=== PATIENT | male | born 1970 | race Caucasian/White ===

== ENCOUNTER → 2019-03-29 | Outpatient (CLI) | payer BC ==
--- NOTE | 2019-03-29 10:51 | US ---
EXAMINATION TYPE: US prostate transrectal DATE OF EXAM: 03/29/2019 COMPARISON: NONE CLINICAL HISTORY: R39.12 abnormal urinary stream. Patient states frequent urination and slow urinary stream This examination was performed using the transrectal probe. EXAM MEASUREMENTS: Gland Size: 4.1 x 4.0 x 2.3 cm Volume: 19.4 ml Predicted PSA: 2.32 Actual PSA (if available): 0.4 on 12-29-2018 No prominent masses or lesions seen in peripheral zone. Central zone calcifications incidentally note d. IMPRESSION: The prostate gland is heterogenous with central zone calcifications although nonenlarged . No suspicious mass is seen. Predicted PSA = volume x 0.12 ng/ml Calculated Volume = 0.5236 x L x W x H
== END | disposition home or self-care (01) ==
LOC: RADUSWWP 08:49
PROVIDERS: ATTEND Internal Medicine
DX: N42.89 Other specified disorders of prostate (principal)
CPT/HCPCS: 76872

== ENCOUNTER → 2020-10-02 | Outpatient (CLI) | payer OTHER ==
[2020-10-02 16:29] LABS: Prostate Specific Antigen 0.4 ng/mL (0.0-3.5)
== END | disposition home or self-care (01) ==
LOC: LABWHC1 08:36
PROVIDERS: ATTEND Family Medicine
DX: R79.89 Other specified abnormal findings of blood chemistry (principal)
CPT/HCPCS: 36415; 82672; 84153; 84402; 84403

== ENCOUNTER 2020-11-14 08:20 | Day surgery (SDC) | payer OTHER ==
[2020-11-12 11:09] VITALS: BMI 28.3
[~2020-11-14 08:20] MED LIST: LACTATED RINGERS 1,000 ML IV SCH
[2020-11-14] MEDS ORDERED: LACTATED RINGERS 1,000 ML IV ONE (08:50)
[2020-11-14] MEDS ORDERED: LIDOCAINE 1% (10MG/ML) FOR IV START INTRADERMA ONE (08:50)
[2020-11-14 09:09] VITALS: RESP 16; TEMP 97.6
[2020-11-14] MEDS ORDERED: PROPOFOL 10 MG/ML 20 ML VIAL IV ONE (09:27)
[2020-11-14] MEDS ORDERED: LIDOCAINE 1% INJ 10MG/ML (20 ML MDV) ONE (09:27)
--- NOTE | 2020-11-14 09:40 | P.PCN ---
Date of Procedure: 11/14/20 Procedure(s) Performed: BRIEF HISTORY: Patient is a 50-year-old pleasant white male scheduled for an elective colonoscopy as a part of a screening for colorectal neoplasia. PROCEDURE PERFORMED: Colonoscopy. PREOPERATIVE DIAGNOSIS: Screening for colon cancer. IV sedation per Anesthesia. PROCEDURE: After informed consent was obtained, the patient, was brought into the endoscopy unit. IV sedation was administered by Anesthesia under continuous monitoring. Digital rectal examination was normal. Initially the Olympus CF-160 flexible video colonoscope was then inserted in the rectum, gradually advanced into the cecum without any difficulty. Careful examination was performed as the scope was gradually being withdrawn. Ileocecal valve and the appendiceal orifice were visualized and appeared normal. Prep was excellent. Mucosa of the cecum, ascending colon, transverse colon, descending colon, sigmoid colon, and rectum appeared normal. Retroflexion was performed in the rectum and no lesions were seen. The patient tolerated the procedure well. IMPRESSION: Normal-appearing colon from rectum to cecum no evidence of colorectal neoplasia. RECOMMENDATIONS: Findings of this examination were discussed with the patient as well as his family. He was advised to have a repeat screening colonoscopy in 10 years..
[2020-11-14 10:05] VITALS: BP 131/85; PULSE 66
== END 2020-11-14 10:20 | disposition home or self-care (01) ==
LOC: ORWHC2ENDO 08:20
PROVIDERS: ATTEND Internal Medicine Gastroenterology
DX: Z12.11 Encounter for screening for malignant neoplasm of colon (principal); Z79.890 Hormone replacement therapy; Z79.899 Other long term (current) drug therapy
CPT/HCPCS: J2001; J2704; G0121

== ENCOUNTER → 2021-01-08 | Outpatient (CLI) | payer OTHER ==
--- NOTE | 2021-01-08 12:17 | CT ---
EXAMINATION TYPE: CT chest w con DATE OF EXAM: 01/08/2021 COMPARISON: None HISTORY: cavatation of lung, difficulty breathing, abnormal CXR at office CT DLP: 280.3 mGycm Automated exposure control for dose reduction was used. CONTRAST: CT scan of the chest is performed with IV Contrast, patient injected with 100 mL of Isovue 300. FINDINGS: LUNGS: Scattered areas of groundglass and nodular airspace infiltrate compatible with underlying pneu monia. No evidence for cavitation. No pleural effusion or volume loss. MEDIASTINUM: There are no greater than 1 cm hilar or mediastinal lymph nodes. No pericardial effusi on is seen. Thoracic aorta is of normal caliber. The heart is not enlarged. UPPER ABDOMEN: No significant abnormality appreciated. OTHER: No additional significant abnormality is seen. IMPRESSION: Scattered areas of groundglass and nodular airspace infiltrate compatible with underlying pneumonia. No evidence for cavitation.
== END | disposition home or self-care (01) ==
LOC: RADCTMAIN 11:36
PROVIDERS: ATTEND Physician Assistant
DX: R91.1 Solitary pulmonary nodule (principal); A15.0 Tuberculosis of lung
CPT/HCPCS: 71260; Q9967

== ENCOUNTER → 2021-03-05 | Outpatient (CLI) | payer OTHER ==
--- NOTE | 2021-03-05 13:56 | MR ---
EXAMINATION TYPE: MR brain wo/w con DATE OF EXAM: 03/05/2021 COMPARISON: None HISTORY: Stuttering, serious forgettfulness, dibilitating feeling when stuttering. Has had symptoms f or 3 months since having covid. R 41.3 TECHNIQUE: Multiplanar, multisequence images of the brain and brainstem is performed without and with IV contras t, utilizing 7.5 mL intravenous Gadavist . FINDINGS: Diffusion weighted images demonstrate no evidence of a recent infarct or other diffusion ab normality. There is no extra-axial fluid collection. Scattered deep white matter hyperintensities ar e present on inversion recovery T2-weighted sequences, approximately 20-30 lesions are present, the l argest in the left frontal lobe measures only 4 to 5 mm in size, axial image 21. The ventricular syst em and cisternal spaces are normal in size and appearance. The brain volume is age appropriate. Midline structures demonstrate normal morphology. The craniocervical junction appears within normal limits. Post contrast images demonstrate no abnormal enhancement. The dural venous sinuses appear pa tent. The visualized sinuses are remarkable for mucosal disease in the ethmoid air cells, and the jay bes are intact. The petrous apex on the right shows increased signal on inversion recovery T2-weighte d sequences and intermediate on T1, mild fluid noted in the mastoids on the right. IMPRESSION: Nonspecific white matter demyelination, consider vasculitis, hypertension, migraine heada ches, Lyme disease, multiple sclerosis is not excluded in the appropriate clinical setting. Correlate for possible petrous apicitis on the right. Temporal bone CT may be of benefit.
== END | disposition home or self-care (01) ==
LOC: RADMRIMAIN 12:21
PROVIDERS: ATTEND Family Medicine
DX: F80.81 Childhood onset fluency disorder (principal); R41.3 Other amnesia
CPT/HCPCS: 70553; A9585

== ENCOUNTER → 2023-10-11 | Outpatient (CLI) | payer OTHER ==
--- NOTE | 2023-10-12 11:18 | CA ---
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 18 - 58 / 22 - 52 cm??? LA Volume Index 23.8 cm???/m??? 16 - 28 cm???/m??? M-MODE Aortic Root Diameter MM 2.6 cm LA Systolic Diameter MM 3.5 cm LA Ao Ratio MM 1.3 AV Cusp Separation MM 1.8 cm DOPPLER AV Peak Velocity 131.9 cm/s AV Peak Gradient 7.0 mmHg AV Mean Velocity 92.1 cm/s AV Mean Gradient 3.7 mmHg AV Velocity Time Integral 30.1 cm LVOT Peak Velocity 109.3 cm/s LVOT Peak Gradient 4.8 mmHg LVOT Velocity Time Integral 24.7 cm MV Area PHT 3.1 cm??? Mitral E Point Velocity 59.6 cm/s Mitral A Point Velocity 70.1 cm/s Mitral E to A Ratio 0.9 MV Deceleration Time 246.0 ms MV E' Velocity 9.0 cm/s Mitral E to MV E' Ratio 6.6 FINDINGS Left Ventricle Mildly increased left ventricular wall thickness. Left ventricular cavity size normal. Normal left ventricular systolic function with no obvious regional wall motion abnormalities. Left ventricular ejection fraction is estimated at 55-60 %. Right Ventricle Normal right ventricular size and function. Right ventricular systolic pressure within normal limits. Right Atrium Normal right atrial size. Left Atrium Normal left atrial size. Mitral Valve Structurally normal mitral valve. No mitral stenosis. Trace to mild mitral regurgitation. Aortic Valve Trileaflet aortic valve. No aortic valve stenosis or regurgitation. Tricuspid Valve Structurally normal tricuspid valve. Trace to mild tricuspid regurgitation. Pulmonic Valve Structurally normal pulmonic valve. Trace pulmonic regurgitation. Pericardium No pericardial effusion. Aorta Normal size aortic root and proximal ascending aorta. CONCLUSIONS Technically difficult study Normal LV systolic function Previewed by: Dr. Sarmad Hendricks MD (Electronically Signed) Final Date: 12 October 2023 11:17
== END | disposition home or self-care (01) ==
LOC: RADECHMAIN 15:46
PROVIDERS: ATTEND Family Medicine
DX: Q67.6 Pectus excavatum (principal)
CPT/HCPCS: 93306

== ENCOUNTER → 2024-03-30 | Outpatient (CLI) | payer OTHER ==
--- NOTE | 2024-04-04 23:08 | MR ---
EXAMINATION TYPE: MR shoulder RT wo con DATE OF EXAM: 03/30/2024 COMPARISON: None HISTORY: Right shoulder pain x6 weeks, Painful to raise arm. Strain. TECHNIQUE: Multiplanar, multisequence imaging of the right shoulder is performed without contrast. FINDINGS: Rotator Cuff: Increased signal in the distal supraspinatus tendon. Intact infraspinatus tendon. Sligh t heterogeneity of the subscapularis tendon with adjacent fluid superiorly. Rotator cuff muscle bulk is maintained. Acromioclavicular Joint: Moderate capsular hypertrophy. Moderate narrowing greatest posteriorly with mild to moderate spurring. Glenohumeral Joint: Small moderate-sized joint effusion. Narrowing is seen. No significant spine. Labrum: The labrum appears grossly intact given limitation of non-arthrogram study. Biceps Tendon: The long head of biceps is in normal location within bicipital groove. Some heterogene ity and thickening of the intracapsular portion Bone marrow signal: No focal abnormal marrow signal is appreciated. Other: No additional significant abnormality is appreciated. IMPRESSION: 1. Tendinosis of the supraspinatus tendon. 2. Fairly moderate degenerative changes in the right shoulder as detailed above.
== END | disposition home or self-care (01) ==
LOC: RADMRIMAIN 21:50
PROVIDERS: ATTEND Family Medicine
DX: M67.813 Other specified disorders of tendon, right shoulder (principal); M25.511 Pain in right shoulder; M19.011 Primary osteoarthritis, right shoulder